=== PATIENT | female | born 1945 | race Two or more races ===

== ENCOUNTER 2018-01-21 09:14 | Outpatient (CLI) | payer OTHER ==
[~2018-01-21 09:14] MED LIST: CIPRO500 MG PO
== END 2018-01-21 09:28 | disposition home or self-care (01) ==
LOC: RX STUDY 09:14
DX: R13.10 Dysphagia, unspecified (principal)

== ENCOUNTER 2018-03-07 07:22 | Outpatient (CLI) | payer OTHER | END 2018-03-07 07:33 | disposition home or self-care (01) | LOC: RAD 07:22 | DX: Z12.31 Encounter for screening mammogram for malignant neoplasm of breast (principal); Z87.898 Personal history of other specified conditions; R16.0 Hepatomegaly, not elsewhere classified; E04.1 Nontoxic single thyroid nodule; N64.4 Mastodynia ==

== ENCOUNTER 2018-08-29 12:18 | Outpatient (CLI) | payer OTHER | END 2018-08-29 12:29 | disposition home or self-care (01) | LOC: SONOGRAMA 12:18 | DX: E04.2 Nontoxic multinodular goiter (principal) ==

== ENCOUNTER 2019-02-28 09:49 | Outpatient (CLI) | payer OTHER | END 2019-02-28 09:58 | disposition home or self-care (01) | LOC: SONOGRAMA 09:49 → MAMO-SONO 10:45 | DX: E04.2 Nontoxic multinodular goiter (principal) ==

== ENCOUNTER → 2019-11-13 | Outpatient (CLI) | payer OTHER | END | disposition home or self-care (01) | LOC: MRI 10:02 | DX: M47.811 Spondylosis without myelopathy or radiculopathy, occipito-atlanto-axial region (principal) | CPT/HCPCS: 72148 ==

== ENCOUNTER 2023-08-15 11:22 | Outpatient (CLI) | payer OTHER | END 2023-08-15 16:36 | disposition home or self-care (01) | LOC: MAMO-SONO 11:22 | PROVIDERS: ATTEND Internal Medicine Hematology & Oncology | DX: Z12.31 Encounter for screening mammogram for malignant neoplasm of breast (principal) ==